=== PATIENT | male | born 1955 | race Caucasian/White ===

== ENCOUNTER 2020-11-06 11:47 | Emergency (ER) | payer OTHER ==
[~2020-11-06] VITALS: Ht 165.1 cm; Wt 88.5 kg
[2020-11-06 12:10] VITALS: BP 130/80
--- NOTE | 2020-11-06 12:38 | NUR ---
65/M presents to ED with c/o left foot and leg pain. Patient states for 4 days he has been having worsening left foot pain that is now radiating up his left leg. Bruising noted on left inner thigh, denies injury or trauma, denies taking anything for pain prior to arrival to ED. Patient states 10/10 aching pain, worsening when walking. Denies chest pain, sob, no redness or tenderness to calf, no warmth noted, patient able to ambulate without assistance.
--- NOTE | 2020-11-06 14:00 | NUR ---
Patient resting in bed with eyes closed, awaiting results. All needs met at this time.
[2020-11-06] MEDS ORDERED: ACETAMINOPHEN EXTRA STRENGTH 500 MG TAB PO ONE (14:25)
[2020-11-06 15:09] LABS: BASOPHILS % (AUTO) 0.6 % (0.0-2.0); EOSINOPHILS # (AUTO) 0.1 K/uL (0-0.4); EOSINOPHILS % (AUTO) 3.1 % (0.0-4.0); HEMATOCRIT 31.7 % (36-52); HEMOGLOBIN 9.6 g/dL (12.0-18.0); LYMPHOCYTES # (AUTO) 1.6 K/uL (2.0-11.5); LYMPHOCYTES % (AUTO) 39.2 % (20.5-51.1); MEAN CORPUSCULAR HEMOGLOBIN 22 pg (27-31); MEAN CORPUSCULAR HGB CONC 30 g/dL (33-37); MEAN CORPUSCULAR VOLUME 70.9 fL (80-94); MONOCYTES # (AUTO) 0.5 K/uL (0.8-1.0); MONOCYTES % (AUTO) 11.6 % (1.7-9.3); NEUTROPHILS # (AUTO) 1.9 K/uL (1.8-7.7); NEUTROPHILS % (AUTO) 45.5 % (42.2-75.2); PLATELET COUNT (AUTO) 326 K/uL (140-450); RED BLOOD CELL COUNT(AUTO) 4.46 MIL/uL (4.20-6.10); RED CELL DISTRIBUTION WIDTH 19.6 % (11.6-13.7); WHITE BLOOD COUNT (AUTO) 4.2 K/uL (4.8-10.8)
[2020-11-06 15:22] LABS: ANION GAP 10.5 (8-16); CARBON DIOXIDE 26.4 mmol/L (21-32); CREATININE 0.9 mg/dL (0.6-1.3); POTASSIUM 3.9 mmol/L (3.5-5.1)
[2020-11-06] MEDS ORDERED: ACET-10509 PO (16:21)
[2020-11-06 16:28] VITALS: BP 146/90
--- NOTE | 2020-11-06 16:28 | NUR ---
Patient discharged with v/s stable. Written and verbal after care instructions given and explained. Patient alert, oriented and verbalized understanding of instructions. Ambulatory with steady gait. All questions addressed prior to discharge. ID band removed. Patient advised to follow up with PMD. Rx of Tylenol Extra Strength given. Patient educated on indication of medication including possible reaction and side effects. Opportunity to ask questions provided and answered.
== END 2020-11-06 16:28 | disposition home or self-care (01) ==
LOC: MED 11:47
DX: S70.12XA Contusion of left thigh, initial encounter (principal); M79.605 Pain in left leg; Z98.890 Other specified postprocedural states; Z79.899 Other long term (current) drug therapy; X58.XXXA Exposure to other specified factors, initial encounter; Y92.89 Other specified places as the place of occurrence of the external cause; Y93.89 Activity, other specified; Y99.8 Other external cause status
CPT/HCPCS: 36415; 80048; 85025; 85610; 85730; 93971; 99284

== ENCOUNTER 2021-03-04 12:22 | Emergency (ER) | payer OTHER ==
[~2021-03-04] VITALS: Ht 175.3 cm; Wt 83.9 kg
[2021-03-04 12:22] VITALS: BP 127/81
[~2021-03-04 12:22] MED LIST: ACET-10509 PO
--- NOTE | 2021-03-04 12:25 | NUR ---
PT SNEHA VIA GURNEY TO BED 11.
--- NOTE | 2021-03-04 12:36 | NUR ---
pt c/o right ankle pain s/p slip and fall. denies loc head. neck or back pain. -deformity noted
[2021-03-04] MEDS ORDERED: HYDROcodone/APAP 5/325 MG 1 TAB TAB PO ONE (13:10)
[2021-03-04] MEDS ORDERED: ACET-8386 PO (13:11)
--- NOTE | 2021-03-04 13:23 | NUR ---
PT's right ankle was splinted with a short posterior and sugar tong splint. ER PA notified and checked.
[2021-03-04 13:48] VITALS: BP 113/70
== END 2021-03-04 13:39 | disposition home or self-care (01) ==
LOC: MED 12:22
DX: S82.891A Other fracture of right lower leg, initial encounter for closed fracture (principal); W18.39XA Other fall on same level, initial encounter; Y93.89 Activity, other specified; Y92.89 Other specified places as the place of occurrence of the external cause; Y99.8 Other external cause status
CPT/HCPCS: 29505; 73610; 99283